=== PATIENT | male | born 1985 | race African-American/Black ===

== ENCOUNTER → 2016-10-07 | Outpatient (CLI) | payer BC ==
[2016-10-07 10:50] LABS: BASOPHILS % 0.7 % (0.0-2.0); EOSINOPHILS % 1.8 % (0.0-5.0); HEMATOCRIT. 49.9 % (42.0-52.0); HEMOGLOBIN. 17.5 g/dL (14.0-18.0); LYMPHOCYTES % 37.7 % (20.0-50.0); MEAN CORPUSCULAR HEMOGLOBIN 30.1 pg (28.0-32.0); MEAN CORPUSCULAR VOLUME 85.7 fL (80.0-94.0); MONOCYTES % 6.7 % (2.0-8.0); NEUTROPHILS % 53.1 % (40.0-76.0); PLATELET 232 x1000/uL (130-400); RED BLOOD CELL COUNT 5.82 mill/uL (4.7-6.1); RED CELL DISTRIBUTION WIDTH 13.2 % (11.6-14.6)
[2016-10-07 11:24] LABS: CARBON DIOXIDE 26 mEq/L (21-32); CHLORIDE 108 mEq/L (98-107); HDL CHOLESTEROL 30 mg/dL (40-59); LDL CHOLESTEROL 87 mg/dL (5-100); TOTAL IRON BINDING CAPACITY 371 ug/dL (250-450)
[2016-10-07 14:14] LABS: HEPATITIS B SURFACE AB > 1000.0 mIU/mL
[2016-10-07 14:25] LABS: HEPATITIS B SURFACE ANTIGEN NEGATIVE
[2016-10-07 14:51] LABS: HEPATITIS B CORE AB IGM NEGATIVE
[2016-10-07 14:52] LABS: HEPATITIS A AB IGM NEGATIVE (NEGATIVE)
[2016-10-07 17:45] LABS: VITAMIN B12 SERUM 535 pg/mL (211-911)
[2016-10-09 09:06] LABS: VITAMIN D 25-OH 12.2 ng/mL (30.0-100.0)
== END | disposition home or self-care (01) ==
LOC: LAB 10:13
PROVIDERS: ATTEND Pathology Anatomic Pathology & Clinical Pathology
DX: Z11.3 Encounter for screening for infections with a predominantly sexual mode of transmission (principal); R79.89 Other specified abnormal findings of blood chemistry
CPT/HCPCS: 36415; 80053; 80061; 82306; 82607; 82746; 83036; 83540; 83550; 84443; 85025; 86592; 86705; 86706; 86709; 86790; 86803; 87186; 87340